=== PATIENT | female | born 1960 | race African-American/Black ===

== ENCOUNTER 2016-12-22 09:07 | Emergency (ER) | payer OTHER, MEDICAID ==
[~2016-12-22] VITALS: Ht 177.8 cm; Wt 141.0 kg
[~2016-12-22 09:07] MED LIST: BENADRYL; DIGO250T81 PO; DOXEPIN PO; FUROSEMIDE PO; GABA100C PO; GLYC1SUP4; HUM10VIA8 SQ; HUMULIN SUBCUT; HYDROXYZINE; INSULIN; LASIX; MINOXIDIL PO; SPIRONOLACTONE PO
[2016-12-22] MEDS ORDERED: MAGNESIUM/ALUMINUM HYDROXIDE/SIMETHICONE 30ML UDC PO STA (10:32)
[2016-12-22] MEDS ORDERED: VISCOUS LIDOCAINE 2% 15 ML UDC PO STA (10:32)
[2016-12-22] MEDS ORDERED: FAMOTIDINE 20MG TABLET PO ONE (10:45)
[2016-12-22] MEDS ORDERED: SODIUM CHLORIDE 0.9% 10ML VIAL ONE (10:52)
[2016-12-22] MEDS ORDERED: IOHEXOL-300 100 ML BOTTLE ONE (10:52)
[2016-12-22 11:34] LABS: CLARITY URINE CLEAR (CLEAR); COLOR URINE YELLOW (YELLOW); GLUCOSE URINE NEGATIVE (NEGATIVE); KETONES URINE NEGATIVE (NEGATIVE); LEUKOCYTE ESTERASE URINE NEGATIVE (NEGATIVE); NITRITE URINE NEGATIVE (NEGATIVE); OCCULT BLOOD URINE NEGATIVE (NEGATIVE); PROTEIN URINE NEGATIVE (NEGATIVE); SPECIFIC GRAVITY URINE 1.014 (1.005-1.030)
[2016-12-22 11:51] LABS: *AMPHETAMINES SCREEN URINE NEGATIVE (NEGATIVE); *BARBITURATES SCREEN URINE NEGATIVE (NEGATIVE); *BENZODIAZEPINES SCREEN URINE NEGATIVE (NEGATIVE); *COCAINE SCREEN URINE NEGATIVE (NEGATIVE); CANNABINOID URINE SCREEN NEGATIVE (NEGATIVE); METHADONE URINE SCREEN NEGATIVE (NEGATIVE); OPIATES URINE SCREEN NEGATIVE (NEGATIVE); PHENCYCLIDINE URINE SCREEN NEGATIVE (NEGATIVE)
[2016-12-22 12:15] VITALS: BP 126/65
[2016-12-22 13:01] LABS: BASOPHILS % 1.2 % (0.0-2.0); EOSINOPHILS % 4.8 % (0.0-5.0); HEMATOCRIT. 35.1 % (36.0-48.0); HEMOGLOBIN. 11.9 g/dL (12.0-16.0); LYMPHOCYTES % 38.6 % (20.0-50.0); MEAN CORPUSCULAR HEMOGLOBIN 29.4 pg (28.0-32.0); MEAN CORPUSCULAR VOLUME 86.8 fL (81.0-99.0); MEAN PLATELET VOLUME 9.2 fl (7.4-10.4); MONOCYTES % 13.5 % (2.0-8.0); NEUTROPHILS % 41.9 % (40.0-76.0); PLATELET 113 x1000/uL (130-400); RED BLOOD CELL COUNT 4.04 mill/uL (4.2-5.4); RED CELL DISTRIBUTION WIDTH 15.4 % (11.6-14.6)
[2016-12-22 13:08] LABS: CHLORIDE 109 mEq/L (98-107); INR 1.2; PROTHROMBIN TIME 12.3 sec (9.4-11.6)
[2016-12-22 13:16] LABS: CARBON DIOXIDE 26 mEq/L (21-32); ETHANOL BLOOD < 10 mg/dL
== END 2016-12-22 18:21 | disposition home or self-care (01) ==
LOC: ER 09:07
DX: K85.90 Acute pancreatitis without necrosis or infection, unspecified (principal); R18.8 Other ascites; K76.0 Fatty (change of) liver, not elsewhere classified; M19.90 Unspecified osteoarthritis, unspecified site; E11.9 Type 2 diabetes mellitus without complications; I10 Essential (primary) hypertension; I50.9 Heart failure, unspecified; Z79.4 Long term (current) use of insulin
CPT/HCPCS: 36415; 74177; 80053; 80305; 81003; 83690; 85025; 85610; 99285; A4216; G0482; Q9967

== ENCOUNTER 2017-05-08 10:55 | Emergency (ER) | payer OTHER, MEDICAID ==
[~2017-05-08] VITALS: Ht 162.6 cm; Wt 145.0 kg
[2017-05-08 12:52] VITALS: BP 164/63
== END 2017-05-08 18:39 | disposition left against medical advice (07) ==
LOC: ER 13:19
DX: M54.2 Cervicalgia (principal)

== ENCOUNTER 2018-04-05 14:03 | Emergency (ER) | payer BC, MEDICAID ==
[~2018-04-05] VITALS: Ht 162.6 cm; Wt 145.0 kg
[2018-04-05] MEDS ORDERED: KETOROLAC 30MG/ML VIAL IV ONE (18:15)
[2018-04-05] MEDS ORDERED: KETOROLAC 60MG/2ML VIAL IM ONE (18:30)
[2018-04-05] MEDS ORDERED: HYDROCODONE/APAP 7.5/325MG 1 TAB TABLET PO ONE (20:00)
[2018-04-05 20:16] VITALS: BP 152/70
== END 2018-04-05 20:43 | disposition home or self-care (01) ==
LOC: ER 14:03
DX: M79.605 Pain in left leg (principal); M79.604 Pain in right leg; M25.552 Pain in left hip; I11.0 Hypertensive heart disease with heart failure; I50.9 Heart failure, unspecified; K59.00 Constipation, unspecified
CPT/HCPCS: 73502; 93970; 96372; 99284; J1885